=== PATIENT | male | born 1950 | race Hispanic/Latino ===

== ENCOUNTER 2024-12-12 10:01 | Emergency (ER) | payer MEDICARE, OTHER ==
[~2024-12-12] VITALS: Ht 175.3 cm; Wt 81.6 kg
[2024-12-12 10:09] VITALS: TEMP 98.7
[2024-12-12 10:34] LABS: BASOPHILS % 1.3 % (0.0-1.0); EOSINOPHILS % 2.0 % (0.0-6.0); LYMPHOCYTES % 27.9 % (18.0-39.1); MONOCYTES % 12.2 % (4.4-11.3); NEUTROPHILS % 56.2 % (38.7-80.0); RED CELL DISTRIBUTION WIDTH 14.1 % (11.7-14.4)
[2024-12-12 11:06] LABS: EST GLOMERULAR FILTRATION RATE 55.0 ML/MIN (>=60)
[2024-12-12 11:45] LABS: LEUKOCYTE ESTERASE ,URINE NEGATIVE (NEGATIVE); PROTEIN,URINE DIPSTICK NEGATIVE (NEGATIVE); URINE UROBILINOGEN 0.2 mg/dL (0.2 - 1)
[2024-12-12 12:11] LABS: EPITHELIAL CELLS,URINE RARE /LPF; WBC,URINE (MAN) 0-5 /HPF (0-5)
[2024-12-12] MEDS ORDERED: FLOMAX0.4 MG PO (12:28)
[2024-12-12 12:30] VITALS: PULSE 75; RESP 14; O2SAT 96
== END 2024-12-12 12:35 | disposition home or self-care (01) ==
LOC: ER 10:08
DX: R31.9 Hematuria, unspecified (principal); N20.0 Calculus of kidney; I10 Essential (primary) hypertension; E11.65 Type 2 diabetes mellitus with hyperglycemia; K21.9 Gastro-esophageal reflux disease without esophagitis; K80.20 Calculus of gallbladder without cholecystitis without obstruction; D36.7 Benign neoplasm of other specified sites; N40.0 Benign prostatic hyperplasia without lower urinary tract symptoms; Z87.442 Personal history of urinary calculi
CPT/HCPCS: 36415; 74176; 80053; 81001; 85025; 99284